=== PATIENT | male | born 1950 | race Caucasian/White ===

== ENCOUNTER → 2016-07-20 | Outpatient (CLI) | payer MEDICARE, BC | END | disposition home or self-care (01) | LOC: RAD.S 10:19 | DX: C34.11 Malignant neoplasm of upper lobe, right bronchus or lung (principal); R06.00 Dyspnea, unspecified; I10 Essential (primary) hypertension; R50.9 Fever, unspecified ==

== ENCOUNTER → 2016-08-10 | Outpatient (CLI) | payer MEDICARE, BC | END | disposition home or self-care (01) | LOC: RAD.S 10:20 | DX: R06.02 Shortness of breath (principal); C34.11 Malignant neoplasm of upper lobe, right bronchus or lung; J90 Pleural effusion, not elsewhere classified; R91.8 Other nonspecific abnormal finding of lung field; I10 Essential (primary) hypertension ==